=== PATIENT | male | born 1990 | race Hispanic/Latino ===

== ENCOUNTER 2020-09-02 01:01 | Emergency (ER) | payer SELFPAY ==
[2020-09-02 01:58] VITALS: BP 127/78
--- NOTE | 2020-09-02 02:05 | Emergency Department Report ---
ED General Adult HPI - General Chief complaint: Dental/Oral Stated complaint: IMPACTED WISDOM TEETH Time Seen by Provider: 09/02/20 02:00 Source: patient Mode of arrival: Ambulatory Limitations: No Limitations - History of Present Illness Initial comments: Pt complains of left upper dental pain x 1 day. He states hx of impacted wisdom teeth and a cavity. States he is scheduled to have his wisdom teeth out this Wednesday. States pain and swelling in gums. Denies facial swelling or fever. Ibuprofen not helping with pain per pt -: Sudden - Related Data Previous Rx's Medication Instructions Recorded Last Taken Type Acetaminophen/Codeine [Tylenol 1 tab PO Q8H PRN #8 tab 09/02/20 Unknown Rx /Codeine # 3 tab] Naproxen [Naprosyn TAB] 500 mg PO BID PRN #20 tablet 09/02/20 Unknown Rx Penicillin V Potassium 500 mg PO QID 7 Days #28 tablet 09/02/20 Unknown Rx Allergies Allergy/AdvReac Type Severity Reaction Status Date / Time shellfish derived Allergy Hives Verified 09/02/20 01:55 ED Review of Systems ROS: Stated complaint: IMPACTED WISDOM TEETH Other details as noted in HPI Constitutional: denies: chills, fever, malaise ENT: dental pain. denies: throat pain Respiratory: denies: cough Cardiovascular: denies: chest pain Hematological/Lymphatic: denies: swollen glands ED Past Medical Hx - Past Medical History Previous Medical History?: No - Surgical History Past Surgical History?: No - Social History Smoking Status: Never Smoker - Medications Home Medications: Home Medications Medication Instructions Recorded Confirmed Last Taken Type Acetaminophen/Codeine [Tylenol 1 tab PO Q8H PRN #8 tab 09/02/20 Unknown Rx /Codeine # 3 tab] Naproxen [Naprosyn TAB] 500 mg PO BID PRN #20 tablet 09/02/20 Unknown Rx Penicillin V Potassium 500 mg PO QID 7 Days #28 tablet 09/02/20 Unknown Rx ED Physical Exam - General Limitations: No Limitations General appearance: alert, in no apparent distress - Head Head exam: Present: atraumatic, normocephalic - Eye Eye exam: Present: normal appearance - Expanded ENT Exam Expanded Mouth exam: Present: tongue normal. Absent: drooling, trismus, muffled voice Teeth exam: Present: dental caries 1 - Dental Tenderness (erythema of the gumline noted; dental caries) - Respiratory Respiratory exam: Present: normal lung sounds bilaterally. Absent: respiratory distress - Cardiovascular Cardiovascular Exam: Present: regular rate, normal rhythm - Neurological Exam Neurological exam: Present: alert, oriented X3, normal gait - Psychiatric Psychiatric exam: Present: normal affect, normal mood - Skin Skin exam: Present: warm, dry, intact, normal color. Absent: rash ED Course Vital Signs 09/02/20 01:55 Temperature 98.6 F Pulse Rate 85 Respiratory 20 Rate Blood Pressure 127/78 O2 Sat by Pulse 97 Oximetry ED Medical Decision Making - Medical Decision Making Pt complains of left upper dental pain x 1 day. He states hx of impacted wisdom teeth and a cavity. States he is scheduled to have his wisdom teeth out this Wednesday. States pain and swelling in gums. Denies facial swelling or fever. Ibuprofen not helping with pain per pt Penicillin and pain meds given. 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 Vitals are normal and he is well appearing. Strict return precautions discussed in detail with pt who verbalizes understanding. Critical care attestation.: If time is entered above; I have spent that time in minutes in the direct care of this critically ill patient, excluding procedure time. ED Disposition Clinical Impression: Pain, dental Disposition: - TO HOME OR SELFCARE Is pt being admited?: No Condition: Stable Instructions: Dental Abscess Additional Instructions: Please follow up with your dental specialist as scheduled this Wednesday Prescriptions: Naproxen [Naprosyn TAB] 500 mg PO BID PRN #20 tablet PRN Reason: pain Penicillin V Potassium 500 mg PO QID 7 Days #28 tablet Acetaminophen/Codeine [Tylenol /Codeine # 3 tab] 1 tab PO Q8H PRN #8 tab PRN Reason: Pain , Severe (7-10)
[2020-09-02] MEDS ORDERED: oxyCODONE /ACETAMINOPHEN 5-325MG TAB PO ONE (02:08)
[2020-09-02] MEDS ORDERED: KETOROLAC 10 MG TAB PO ONE (02:08)
== END 2020-09-02 02:00 | disposition home or self-care (01) ==
LOC: ED 01:01
DX: K08.89 Other specified disorders of teeth and supporting structures (principal); Z79.899 Other long term (current) drug therapy; Z91.013 Allergy to seafood
CPT/HCPCS: 99282

== ENCOUNTER 2020-09-06 21:04 | Emergency (ER) | payer SELFPAY ==
[2020-09-06 21:43] VITALS: BP 118/77
[2020-09-06] MEDS ORDERED: HYDROcodone/ACETAMINOPHEN 5-325 MG TAB PO STA (22:41)
--- NOTE | 2020-09-06 22:45 | Emergency Department Report ---
ED General Adult HPI - General Chief complaint: Dental/Oral Stated complaint: ABSCESSED TOOTH Time Seen by Provider: 09/06/20 22:19 Source: patient Mode of arrival: Ambulatory Limitations: No Limitations - History of Present Illness Initial comments: 22-year-old male presents [facility] complaining of acute on chronic dental pain which is now progressed to swelling since his last visit [facility] about 6 days ago. States that he has a long history of poor dental care and was seen and evaluated 6 days ago and treated with amoxicillin as well as an anti-inflammatory for his dental pain states is taking medication as prescribed but reports that he has had some notable swelling and pain to the left jaw area and is running out of his pain pain medication is not due to follow-up with the dentist again for 1 week so he seeks further evaluation for analgesic control today. Ports no fever, chills, sweats, no odynophagia or or dysphagia. No nausea, no vomiting, no hemoptysis, hematemesis, hematochezia. - Related Data Previous Rx's Medication Instructions Recorded Last Taken Type Acetaminophen/Codeine [Tylenol 1 tab PO Q8H PRN #8 tab 09/02/20 Unknown Rx /Codeine # 3 tab] Naproxen [Naprosyn TAB] 500 mg PO BID PRN #20 tablet 09/02/20 Unknown Rx Penicillin V Potassium 500 mg PO QID 7 Days #28 tablet 09/02/20 Unknown Rx Chlorhexidine Mouthwash [Peridex] 15 ml MM BID #1 bottle 09/06/20 Unknown Rx Clindamycin [Clindamycin CAP] 300 mg PO Q6H #28 capsule 09/06/20 Unknown Rx Lidocaine Viscous 2% 5 ml MM Q3H PRN #120 udc 09/06/20 Unknown Rx traMADoL [Ultram] 50 mg PO Q6HR PRN #20 tablet 09/06/20 Unknown Rx Allergies Allergy/AdvReac Type Severity Reaction Status Date / Time shellfish derived Allergy Hives Verified 09/02/20 01:55 ED Review of Systems ROS: Stated complaint: ABSCESSED TOOTH Other details as noted in HPI Comment: All other systems reviewed and negative ED Past Medical Hx - Past Medical History Previous Medical History?: No - Surgical History Past Surgical History?: No - Social History Smoking Status: Former Smoker Substance Use Type: Alcohol, Marijuana - Medications Home Medications: Home Medications Medication Instructions Recorded Confirmed Last Taken Type Acetaminophen/Codeine [Tylenol 1 tab PO Q8H PRN #8 tab 09/02/20 Unknown Rx /Codeine # 3 tab] Naproxen [Naprosyn TAB] 500 mg PO BID PRN #20 tablet 09/02/20 Unknown Rx Penicillin V Potassium 500 mg PO QID 7 Days #28 tablet 09/02/20 Unknown Rx Chlorhexidine Mouthwash [Peridex] 15 ml MM BID #1 bottle 09/06/20 Unknown Rx Clindamycin [Clindamycin CAP] 300 mg PO Q6H #28 capsule 09/06/20 Unknown Rx Lidocaine Viscous 2% 5 ml MM Q3H PRN #120 udc 09/06/20 Unknown Rx traMADoL [Ultram] 50 mg PO Q6HR PRN #20 tablet 09/06/20 Unknown Rx ED Physical Exam - General Limitations: No Limitations General appearance: alert, in no apparent distress - Head Head exam: Present: atraumatic, normocephalic - Eye Eye exam: Present: normal appearance - ENT ENT exam: Present: mucous membranes moist, other (Swelling to the left mandible region. Diffuse dental caries are noted. There is an abscess adjacent to tooth #19. Some mild tenderness with palpation of that tooth. There is no bleeding or active active discharge. Airway is patent tongue and uvula are midline. Voice is normal no drooling) - Neck Neck exam: Present: normal inspection - Respiratory Respiratory exam: Present: normal lung sounds bilaterally. Absent: respiratory distress - Cardiovascular Cardiovascular Exam: Present: regular rate, normal rhythm. Absent: systolic murmur, diastolic murmur, rubs, gallop - GI/Abdominal GI/Abdominal exam: Present: soft, normal bowel sounds - Rectal Rectal exam: Present: deferred - Extremities Exam Extremities exam: Present: normal inspection - Back Exam Back exam: Present: normal inspection - Neurological Exam Neurological exam: Present: alert, oriented X3 - Psychiatric Psychiatric exam: Present: normal affect, normal mood - Skin Skin exam: Present: warm, dry, intact, normal color. Absent: rash ED Course Vital Signs 09/06/20 21:42 Temperature 98.3 F Pulse Rate 71 Respiratory 18 Rate Blood Pressure 118/77 O2 Sat by Pulse 96 Oximetry Critical care attestation.: If time is entered above; I have spent that time in minutes in the direct care of this critically ill patient, excluding procedure time. ED Disposition Clinical Impression: Pain, dental Disposition: [id number] TO HOME OR SELFCARE Is pt being admited?: No Does the pt Need Aspirin: No Condition: Stable Instructions: Acute Pain, Adult, Dental Abscess, [id number], Dental Extraction, [id number], Dental Abscess, Diet and Dental Disease Prescriptions: Clindamycin [Clindamycin CAP] 300 mg PO Q6H #28 capsule Lidocaine Viscous 2% 5 ml MM Q3H PRN #120 udc PRN Reason: Pain, Moderate (4-6) Chlorhexidine Mouthwash [Peridex] 15 ml MM BID #1 bottle traMADoL [Ultram] 50 mg PO Q6HR PRN #20 tablet PRN Reason: Pain Referrals: PRIMARY CARE, [Primary Care Provider] - 3-5 Days [facility] [Outside] - 3-5 Days
== END 2020-09-06 22:52 | disposition home or self-care (01) ==
LOC: ED 21:04
DX: K08.89 Other specified disorders of teeth and supporting structures (principal); Z87.891 Personal history of nicotine dependence; F12.90 Cannabis use, unspecified, uncomplicated; Z72.89 Other problems related to lifestyle; Z79.899 Other long term (current) drug therapy; Z91.013 Allergy to seafood
CPT/HCPCS: 99282